=== PATIENT | male | born 2000 | race Caucasian/White ===

== ENCOUNTER 2021-12-01 07:16 | Emergency (ER) | payer BC ==
[2021-12-01 07:29] VITALS: BP 158/80
--- NOTE | 2021-12-01 08:15 | ED Physician Documentation ---
PD HPI HEENT - Stated complaint Stated Complaint: COUGH/SORE THROAT - Chief complaint Chief Complaint: Heent - History obtained from History obtained from: Patient - Additional information Additional information: Patient comes to the emergency department chief complaint of cough, sore throat, and runny nose for the last 5 days. He states the symptoms have gotten progressively worse, mainly the sore throat. He states its most sore on the right side as opposed to the left. He denies any shortness of breath. No nausea or vomiting. No fever or chills. No known sick contacts, but the patient did just arrived by plane within the last week from [place] to do contract work with the here. He is not COVID or influenza vaccinated. He is otherwise healthy. No other complaints at this time. Review of Systems Ten Systems: 10 systems reviewed and negative Constitutional: reports: Reviewed and negative Eyes: reports: Reviewed and negative Ears: reports: Reviewed and negative Nose: reports: Rhinorrhea / runny nose, Congestion Throat: reports: Sore throat Cardiac: reports: Reviewed and negative Respiratory: reports: Cough GI: reports: Reviewed and negative : reports: Reviewed and negative Skin: reports: Reviewed and negative Musculoskeletal: reports: Reviewed and negative Neurologic: reports: Reviewed and negative Psychiatric: reports: Reviewed and negative Endocrine: reports: Reviewed and negative Immunocompromised: reports: Reviewed and negative PD PAST MEDICAL HISTORY - Present Medications Home Medications: Ambulatory Orders Medication Instructions Recorded Confirmed predniSONE [Deltasone] 60 mg PO DAILY 3 Days #9 tablet 12/01/21 - Allergies Allergies/Adverse Reactions: Allergies Allergy/AdvReac Type Severity Reaction Status Date / Time Penicillins Allergy Hives Verified 12/01/21 07:29 PD ED PE NORMAL - Vitals Vital signs reviewed: Yes - General General: Alert and oriented X 3, No acute distress, Well developed/nourished - HEENT HEENT: Atraumatic, PERRL, EOMI, Moist mucous membranes, Other (Mild erythema of pharynx, no exudates or lesions. Tonsils 1+.) - Neck Neck: Supple, no meningeal sign, No adenopathy - Cardiac Cardiac: RRR, No murmur - Respiratory Respiratory: No respiratory distress, Clear bilaterally - Abdomen Abdomen: Soft, Non tender, Non distended - Derm Derm: Normal color, Warm and dry, No rash - Extremities Extremities: No deformity, No edema - Neuro Neuro: Alert and oriented X 3, stencil cutter machine 2-12 intact, Normal speech, Other (Grossly intact) - Psych Psych: Normal mood, Normal affect Results - Vitals Vitals: Vital Signs - 24 hr 12/01/21 07:24 Temperature 35.9 C L Heart Rate 86 Respiratory 16 Rate Blood Pressure 158/80 H O2 Saturation 98 Oxygen O2 Source Room air PD MEDICAL DECISION MAKING - ED course Complexity details: considered differential, d/w patient ED course: COVID test was sent and is pending on this patient. Symptoms most consistent with a viral upper respiratory infection, and we have discussed home management of the symptoms and the self-limited nature of this illness. Patient was given a dose of prednisone here in the emergency department for his sore throat. We have discussed the usual indications for return. Departure - Departure Disposition: Home, Self Care Clinical Impression: Upper respiratory infection Qualifiers: URI type: unspecified viral URI Qualified Code(s): J06.9 - Acute upper respiratory infection, unspecified Pharyngitis Qualifiers: Pharyngitis/tonsillitis etiology: unspecified etiology Qualified Code(s): J02.9 - Acute pharyngitis, unspecified Condition: Stable Instructions: ED Pharyngitis Viral, ED URI Viral Prescriptions: predniSONE [Deltasone] 60 mg PO DAILY 3 Days #9 tablet Comments: Your symptoms are most consistent with a viral upper respiratory infection, or "cold". A COVID test has been performed on you today and is pending at this time. We will call you if it is positive, and results should be back within 24 to 48 hours. If it is negative, we do not call, so if you do not hear from us with him the next 2 or 3 days, you can probably assume you are negative. However, if you would like to know for sure, you may go to the hospital website at [email or web address], click on the "[facility]" tab, and send it for the patient portal. In this way, you can monitor your results. You may use tphs-azd-cehvric medications such as ibuprofen and Tylenol and cold preparations to help with your symptoms. You may also take the steroid to help bring down some the inflammation that is causing pain in your throat. Please be sure to drink plenty of fluids, especially clear liquids. Your symptoms should go away on their own in the next several days to week.
== END 2021-12-01 08:21 | disposition home or self-care (01) ==
LOC: ED 07:16
DX: J06.9 Acute upper respiratory infection, unspecified (principal); J02.9 Acute pharyngitis, unspecified; Z20.822 Contact with and (suspected) exposure to COVID-19
CPT/HCPCS: 99283

== ENCOUNTER 2022-03-31 11:01 | Emergency (ER) | payer BC ==
[2022-03-31] MEDS ORDERED: IBUPROFEN 800 MG TABLET PO STA (12:50)
--- NOTE | 2022-03-31 12:53 | ED Physician Documentation ---
History of Present Illness - Stated complaint Stated Complaint: COUGH,HEAD PX/FEVER - Chief complaint Chief Complaint: Resp - History obtained from History obtained from: Patient - History of Present Illness Timing: How many days ago (2) Pain level max: 3 Pain level now: 3 - Additonal information Additional information: Patient is a 22-year-old male who presents to the emergency department with a cough, head pain and fever. Ongoing for the past 2 days. He states moderate rhinorrhea and congestion. He states that there are small streaks of blood in the sputum. Has not had his COVID vaccinations. No difficulty breathing. Has had diarrhea and nausea as well. No abdominal pain. He is not on any medic ations at home. Does not smoke or drink. Denies any drug use. He has been around other people have been sick as well. Review of Systems Constitutional: reports: Fever (Subjective). denies: Chills Ears: denies: Ear pain Nose: reports: Rhinorrhea / runny nose, Congestion Throat: denies: Sore throat Respiratory: reports: Cough (Occasionally productive, blood-tinged sputum) GI: reports: Nausea, Diarrhea (Nonbloody, loose). denies: Vomiting, Hematemesis, Bloody / black stool Skin: denies: Rash Musculoskeletal: denies: Neck pain, Back pain Neurologic: denies: Headache PD PAST MEDICAL HISTORY - Past Medical History Past Medical History: No - Past Surgical History Past Surgical History: No - Present Medications Home Medications: Ambulatory Orders Medication Instructions Recorded Confirmed predniSONE [Deltasone] 60 mg PO DAILY 3 Days #9 tablet 12/01/21 - Allergies Allergies/Adverse Reactions: Allergies Allergy/AdvReac Type Severity Reaction Status Date / Time Penicillins Allergy Hives Verified 12/01/21 07:29 - Social History Does the pt smoke?: No Smoking Status: Never smoker - POLST Patient has POLST: No PD ED PE NORMAL - Vitals Vital signs reviewed: Yes - General General: Alert and oriented X 3, No acute distress - HEENT HEENT: PERRL, Ears normal, Moist mucous membranes, Pharynx benign - Neck Neck: Supple, no meningeal sign - Cardiac Cardiac: RRR, Strong equal pulses - Respiratory Respiratory: No respiratory distress, Clear bilaterally - Abdomen Abdomen: Soft, Non tender, Non distended - Derm Derm: Warm and dry, No rash - Neuro Neuro: Alert and oriented X 3 - Psych Psych: Normal mood, Normal affect Results - Vitals Vitals: Vital Signs - 24 hr 03/31/22 03/31/22 11:06 15:08 Temperature 37.2 C 37 C Heart Rate 110 H 80 Respiratory 20 20 Rate Blood Pressure 139/94 H 135/87 H O2 Saturation 99 100 Oxygen O2 Source Room air - Labs Labs: Laboratory Tests 03/31/22 12:56 Nasal Adenovirus (PCR) NOT DETECTED Nasal B. parapertussis DNA (PCR) NOT DETECTED Nasal Coronavir 229E PCR NOT DETECTED Nasal Coronavir HKU1 PCR NOT DETECTED Nasal Coronavir NL63 PCR NOT DETECTED Nasal Coronavir OC43 PCR NOT DETECTED Nasal Enterovir/Rhinovir PCR NOT DETECTED Nasal Influenza A H3 PCR DETECTED A Nasal Influenza B PCR NOT DETECTED Nasal Influenza A PCR [employer] Nasal Parainfluen 1 PCR NOT DETECTED Nasal Parainfluen 2 PCR NOT DETECTED Nasal Parainfluen 3 PCR NOT DETECTED Nasal Parainfluen 4 PCR NOT DETECTED Nasal RSV (PCR) NOT DETECTED Nasal B.pertussis DNA PCR NOT DETECTED Nasal C.pneumoniae (PCR) NOT DETECTED Serge Human Metapneumo PCR NOT DETECTED Nasal M.pneumoniae (PCR) NOT DETECTED Nasal SARS-CoV-2 (PCR) NOT DETECTED PD MEDICAL DECISION MAKING - ED course Complexity details: reviewed results, re-evaluated patient, considered differential, d/w patient ED course: 22-year-old male with influenza A. We did discuss antiviral medication as he is within the 2-day window, he declines these. We will continue supportive care. Patient is well-appearing, nontoxic. Afebrile. No hypoxia. No respiratory distress. Patient counseled regarding signs and symptoms for which I believe and urgent re-evaluation would be necessary. Patient with good understanding of and agreement to plan and is comfortable going home at this time This document was made in part using voice recognition software. While efforts are made to proofread this document, sound alike and grammatical errors may occur. Departure - Departure Disposition: 01 Home, Self Care Clinical Impression: Influenza A Condition: Good Instructions: ED Flu Follow-Up: your,doctor as needed [Other] Comments: You have tested positive for influenza A today. Drink plenty of fluids and rest. Follow-up with your doctor as needed for further care. Forms: Activity restrictions Discharge Date/Time: 03/31/22 15:08
--- NOTE | 2022-03-31 13:26 | XRAY Report ---
PROCEDURE: Chest 1 View X-Ray INDICATIONS: cough, hemoptysis TECHNIQUE: One view of the chest was acquired. COMPARISON: None. FINDINGS: Surgical changes and devices: None. Lungs and pleura: No pleural effusions or pneumothorax. Lungs are clear. Mediastinum: Mediastinal contours appear normal. Heart size is normal. Bones and chest wall: No suspicious bony lesions. Overlying soft tissues appear unremarkable. IMPRESSION: No acute cardiopulmonary abnormality. If clinically indicated consider further evaluation with CT of the chest with IV contrast. Reviewed by: Quinn Lopez MD on 03/31/2022 1:25 PM PDT Approved by: Quinn Lopez MD on 03/31/2022 1:25 PM PDT Station ID: [id number]
[2022-03-31 14:22] LABS: CORONAVIRUS 229E-RESP PCR NOT DETECTED; CORONAVIRUS HKU1-RESP PCR NOT DETECTED; CORONAVIRUS NL63-RESP PCR NOT DETECTED; CORONAVIRUS OC43-RESP PCR NOT DETECTED; HUMAN METAPNEUMOVIRUS NOT DETECTED; INFLUENZA A H3- RESP PCR PANEL DETECTED; RHINOVIRUS/ENTEROVIRUS NOT DETECTED; SARS-CoV-2 -RESP PCR PANEL NOT DETECTED
[2022-03-31 14:23] LABS: B. PARAPERTUSSIS- RESP PCR PAN NOT DETECTED; B. PERTUSSIS- RESP PCR PANEL NOT DETECTED; C. PNEUMONIAE- RESP PCR PANEL NOT DETECTED; INFLUENZA B - RESP PCR PANEL NOT DETECTED; M. PNEUMONIAE- RESP PCR PANEL NOT DETECTED; PARAINFLUENZA VIRUS 1 NOT DETECTED; PARAINFLUENZA VIRUS 2 NOT DETECTED; PARAINFLUENZA VIRUS 3 NOT DETECTED; PARAINFLUENZA VIRUS 4 NOT DETECTED; RSV- RESP PCR PANEL NOT DETECTED
[2022-03-31 15:10] VITALS: BP 135/87
== END 2022-03-31 15:08 | disposition home or self-care (01) ==
LOC: ED 11:01
DX: J10.1 Influenza due to other identified influenza virus with other respiratory manifestations (principal); Z20.822 Contact with and (suspected) exposure to COVID-19
CPT/HCPCS: 71045; 87633; 87635; 99282; 99284; A9270